=== PATIENT | female | born 1995 | race Caucasian/White ===

== ENCOUNTER → 2023-07-18 16:23 | Outpatient (REF) | payer BC, SELFPAY | LOC: PNTC 16:23 | PROVIDERS: ATTENDING PHYSICIAN Obstetrics & Gynecology | DX: O99.210 Obesity complicating pregnancy, unspecified trimester (principal) | CPT/HCPCS: 76816 ==

== ENCOUNTER → 2023-08-04 16:26 | Outpatient (REF) | payer BC, SELFPAY | LOC: PNTC 16:26 | PROVIDERS: ATTENDING PHYSICIAN Obstetrics & Gynecology | DX: O99.210 Obesity complicating pregnancy, unspecified trimester (principal) | CPT/HCPCS: 59025; 76815 ==

== ENCOUNTER → 2023-08-11 16:28 | Outpatient (REF) | payer BC, SELFPAY | LOC: PNTC 16:28 | PROVIDERS: ATTENDING PHYSICIAN Obstetrics & Gynecology | DX: O99.210 Obesity complicating pregnancy, unspecified trimester (principal) | CPT/HCPCS: 59025; 76815 ==

== ENCOUNTER → 2023-08-18 16:03 | Outpatient (REF) | payer BC, SELFPAY | LOC: PNTC 16:03 | PROVIDERS: ATTENDING PHYSICIAN Obstetrics & Gynecology | DX: O99.210 Obesity complicating pregnancy, unspecified trimester (principal) | CPT/HCPCS: 59025; 76816 ==

== ENCOUNTER → 2023-08-25 06:57 | Outpatient (REF) | payer BC, SELFPAY | LOC: PNTC 06:57 | PROVIDERS: ATTENDING PHYSICIAN Obstetrics & Gynecology | DX: O99.210 Obesity complicating pregnancy, unspecified trimester (principal) | CPT/HCPCS: 59025; 76815 ==

== ENCOUNTER → 2023-09-01 11:27 | Outpatient (REF) | payer BC, SELFPAY | LOC: PNTC 11:27 | PROVIDERS: ATTENDING PHYSICIAN Obstetrics & Gynecology | DX: O99.210 Obesity complicating pregnancy, unspecified trimester (principal) | CPT/HCPCS: 59025; 76815 ==

== ENCOUNTER 2023-09-03 23:34 | Observation (INO) | payer BC, SELFPAY ==
[2023-09-03 23:51] VITALS: BMI 39.9
[2023-09-03 23:59] VITALS: BP 124/73
== END 2023-09-04 00:29 | disposition home or self-care (01) ==
LOC: LDRP 23:34
PROVIDERS: ADMITTING PHYSICIAN Obstetrics & Gynecology
DX: O36.8130 Decreased fetal movements, third trimester, not applicable or unspecified (principal); Z3A.39 39 weeks gestation of pregnancy; O99.213 Obesity complicating pregnancy, third trimester; E66.01 Morbid (severe) obesity due to excess calories
CPT/HCPCS: 59025; G0378

== ENCOUNTER → 2023-09-08 16:39 | Outpatient (REF) | payer BC, SELFPAY | LOC: PNTC 16:39 | PROVIDERS: ATTENDING PHYSICIAN Obstetrics & Gynecology | DX: O99.210 Obesity complicating pregnancy, unspecified trimester (principal) | CPT/HCPCS: 59025; 76815 ==

== ENCOUNTER 2023-09-12 08:16 | Inpatient (IN) | payer BC, SELFPAY ==
[2023-09-12 08:32] VITALS: BP 125/76; BMI 41.2
[2023-09-12 11:13] LABS: % Basophils 0.5 % (0-2); % Eosinophils 0.6 % (0-6); % Immature Granulocytes 0.9 % (0-0.5); % Lymphocytes 24.2 % (20.5-51.1); % Monocytes 6.8 % (1.7-9.3); Absolute Eosinophils 0.1 10^3/uL (0-0.7); Absolute Immature Granulocytes 0.1 10^3/uL (0-0.05); Absolute Lymphocytes 1.9 10^3/uL (1.2-3.4); Absolute Monocytes 0.5 10^3/uL (0.1-0.6); Absolute Neutrophils 5.2 10^3/uL (1.4-6.5); Mean Corp Hgb Conc. 34.4 g/dL (33.0-37.0); Mean Corpuscular Hgb 29.6 pg (27.0-31.0); Nucleated Red Blood Cells % 0 %; Red Blood Cell Count 3.72 10^6/uL (4.20-5.40); Red Cell Dist. Width 13.6 % (11.5-14.5); White Blood Cell Count 7.8 10^3/uL (4.8-10.8)
[2023-09-12] MEDS: PITOCIN 30 UNITS/NSS 500 ML IV ×2 (11:39→20:40)
[2023-09-12] MEDS: LR 1000 IV (11:39)
[2023-09-12] MEDS: TUMS 2 TABLET PO ×3 (11:54→22:07)
[2023-09-12 19:23] LABS: Platelet Count 140 10^3/uL (130-400)
[2023-09-12] MEDS: MORPHINE SULFATE 2 MG IV (20:51)
[2023-09-12] MEDS: MOTRIN 600 MG PO (22:09)
[2023-09-13] MEDS: MOTRIN 600 MG PO ×3 (04:33→17:32)
[2023-09-13 04:41] LABS: Hematocrit 28.5 % (37.0-47.0); Hemoglobin 9.7 g/dL (12.0-16.0)
[2023-09-13] MEDS: SENOKOT-S 1 TABLET PO (06:21)
[2023-09-13] MEDS: PRENATAL PLUS 1 TABLET PO (09:04)
[2023-09-13] MEDS: FEOSOL 325 MG PO ×2 (09:05→20:44)
[2023-09-13 14:53] LABS: Syphilis/T. pallidum Ab Reflex Negative (Negative)
[2023-09-14] MEDS: MOTRIN 600 MG PO ×2 (01:05→07:59)
--- NOTE | 2023-09-14 04:45 | DOWNTIME ---
There was a [employer] Client Office [employer]ician Downtime on 09/14/2023 from 0100 to 09/14/2023 at 0439. Downtime documentation of patient's care, including medication administrations, has been reconciled in the electronic record per guidelines. Refer to the
patient's paper chart under the miscellaneous tab to see printed paper medication records and downtime forms.
[2023-09-14] MEDS: FEOSOL 325 MG PO (07:56)
[2023-09-14] MEDS: PRENATAL PLUS 1 TABLET PO (07:56)
[2023-09-14] MEDS: SENOKOT-S 1 TABLET PO (07:56)
== END 2023-09-14 13:00 | disposition home or self-care (01) | DRG 807 ==
LOC: LDRP 08:16
PROVIDERS: ADMITTING PHYSICIAN Obstetrics & Gynecology
PROC: 0KQM0ZZ Repair Perineum Muscle, Open Approach (ICD-10-PCS; 2023-09-12)
PROC: 3E033VJ Introduction of Other Hormone into Peripheral Vein, Percutaneous Approach (ICD-10-PCS; 2023-09-12)
PROC: 10907ZC Drainage of Amniotic Fluid, Therapeutic from Products of Conception, Via Natural or Artificial Opening (ICD-10-PCS; 2023-09-12)
PROC: 10E0XZZ Delivery of Products of Conception, External Approach (ICD-10-PCS; 2023-09-12)
DX: O48.0 Post-term pregnancy (principal); Z37.0 Single live birth; Z3A.40 40 weeks gestation of pregnancy; O70.1 Second degree perineal laceration during delivery; O69.81X0 Labor and delivery complicated by cord around neck, without compression, not applicable or unspecified; O99.214 Obesity complicating childbirth; E66.01 Morbid (severe) obesity due to excess calories; O90.81 Anemia of the puerperium; D64.9 Anemia, unspecified
CPT/HCPCS: 59025; 85014; 85018; 85025; 85049; 85461; 86780; 86850; 86900; 86901

== ENCOUNTER → 2024-10-08 17:08 | Outpatient (REF) | payer BC, SELFPAY | LOC: PNTC 17:08 | PROVIDERS: ATTENDING PHYSICIAN Obstetrics & Gynecology | DX: O36.80X0 Pregnancy with inconclusive fetal viability, not applicable or unspecified (principal); O99.211 Obesity complicating pregnancy, first trimester; Z36.82 Encounter for antenatal screening for nuchal translucency | CPT/HCPCS: 76801; 76813 ==

== ENCOUNTER → 2024-11-06 15:49 | Outpatient (REF) | payer BC, SELFPAY | LOC: PNTC 15:49 | PROVIDERS: ATTENDING PHYSICIAN Obstetrics & Gynecology | DX: O99.210 Obesity complicating pregnancy, unspecified trimester (principal) | CPT/HCPCS: 76805 ==

== ENCOUNTER → 2024-12-04 09:53 | Outpatient (REF) | payer BC, SELFPAY | LOC: PNTC 09:53 | PROVIDERS: ATTENDING PHYSICIAN Obstetrics & Gynecology | DX: O99.210 Obesity complicating pregnancy, unspecified trimester (principal) | CPT/HCPCS: 76811 ==

== ENCOUNTER → 2025-01-10 10:25 | Outpatient (REF) | payer BC, SELFPAY | LOC: PNTC 10:25 | PROVIDERS: ATTENDING PHYSICIAN Obstetrics & Gynecology | DX: O99.212 Obesity complicating pregnancy, second trimester (principal) | CPT/HCPCS: 76816 ==

== ENCOUNTER → 2025-02-07 16:14 | Outpatient (REF) | payer BC, SELFPAY | LOC: PNTC 16:14 | PROVIDERS: ATTENDING PHYSICIAN Obstetrics & Gynecology | DX: Z34.90 Encounter for supervision of normal pregnancy, unspecified, unspecified trimester (principal) | CPT/HCPCS: 36415; 86850; 86900; 86901; 96372; J2790 ==

== ENCOUNTER → 2025-02-25 17:23 | Outpatient (REF) | payer BC, SELFPAY | LOC: PNTC 17:23 | PROVIDERS: ATTENDING PHYSICIAN Obstetrics & Gynecology | DX: O99.210 Obesity complicating pregnancy, unspecified trimester (principal) | CPT/HCPCS: 76816 ==

== ENCOUNTER → 2025-03-11 16:57 | Outpatient (REF) | payer BC, SELFPAY | LOC: PNTC 16:57 | PROVIDERS: ATTENDING PHYSICIAN Obstetrics & Gynecology | DX: O99.213 Obesity complicating pregnancy, third trimester (principal) | CPT/HCPCS: 59025; 76815 ==

== ENCOUNTER → 2025-03-18 16:51 | Outpatient (REF) | payer BC, SELFPAY | LOC: PNTC 16:51 | PROVIDERS: ATTENDING PHYSICIAN Obstetrics & Gynecology | DX: O99.213 Obesity complicating pregnancy, third trimester (principal) | CPT/HCPCS: 59025; 76815 ==

== ENCOUNTER → 2025-03-25 17:07 | Outpatient (REF) | payer BC, SELFPAY | LOC: PNTC 17:07 | PROVIDERS: ATTENDING PHYSICIAN Obstetrics & Gynecology | DX: O99.213 Obesity complicating pregnancy, third trimester (principal) | CPT/HCPCS: 59025; 76816 ==

== ENCOUNTER → 2025-04-01 17:06 | Outpatient (REF) | payer BC, SELFPAY | LOC: PNTC 17:06 | PROVIDERS: ATTENDING PHYSICIAN Obstetrics & Gynecology | DX: O99.213 Obesity complicating pregnancy, third trimester (principal) | CPT/HCPCS: 59025; 76815 ==

== ENCOUNTER → 2025-04-08 16:56 | Outpatient (REF) | payer BC, SELFPAY | LOC: PNTC 16:56 | PROVIDERS: ATTENDING PHYSICIAN Obstetrics & Gynecology | DX: O99.213 Obesity complicating pregnancy, third trimester (principal) | CPT/HCPCS: 59025 ==

== ENCOUNTER → 2025-04-22 17:03 | Outpatient (REF) | payer BC, SELFPAY | LOC: PNTC 17:03 | PROVIDERS: ATTENDING PHYSICIAN Obstetrics & Gynecology | DX: O99.213 Obesity complicating pregnancy, third trimester (principal) | CPT/HCPCS: 59025; 76816 ==

== ENCOUNTER 2025-04-23 15:34 | Inpatient (IN) | payer BC, SELFPAY ==
[2025-04-23 15:58] VITALS: BP 116/71; BMI 39.1
[2025-04-23] MEDS: TUMS CHEWABLE TABLET 400 MG PO (16:45)
[2025-04-23] MEDS: LR 1000 IV (16:48)
[2025-04-23 16:56] LABS: Hematocrit 32.6 % (37.0-47.0); Hemoglobin 10.6 g/dL (12.0-16.0); Mean Corp Hgb Conc. 32.5 g/dL (33.0-37.0); Mean Corpuscular Volume 85.8 fL (81.0-99.0); Nucleated Red Blood Cells % 0 %; Platelet Count 163 10^3/uL (130-400); Red Cell Dist. Width 14.3 % (11.5-14.5)
[2025-04-23] MEDS: PITOCIN 30 UNITS/NSS 500 ML IV (18:09)
[2025-04-23] MEDS: TYLENOL 650 MG PO (19:20)
[2025-04-23] MEDS: COLACE 100 MG PO (19:20)
[2025-04-23] MEDS: MOTRIN 600 MG PO (19:20)
[2025-04-24] MEDS: TYLENOL 650 MG PO ×4 (00:27→19:52)
[2025-04-24] MEDS: MOTRIN 600 MG PO ×4 (03:47→21:51)
[2025-04-24 04:20] LABS: Hematocrit 28.1 % (37.0-47.0); Hemoglobin 9.4 g/dL (12.0-16.0)
[2025-04-24] MEDS: COLACE 100 MG PO ×2 (08:39→19:52)
[2025-04-24] MEDS: PRENATAL PLUS 1 TABLET PO (08:39)
[2025-04-24] MEDS: RHOGAM 300 MCG IM (13:11)
[2025-04-25] MEDS: MOTRIN 600 MG PO (04:37)
[2025-04-25] MEDS: TYLENOL 650 MG PO (08:01)
[2025-04-25] MEDS: COLACE 100 MG PO (08:01)
[2025-04-25] MEDS: PRENATAL PLUS 1 TABLET PO (08:01)
[2025-04-26 16:28] LABS: Syphilis/T. pallidum Ab Reflex Negative (Negative)
== END 2025-04-25 10:50 | disposition home or self-care (01) | DRG 807 ==
LOC: LDRP 15:34
PROVIDERS: ADMITTING PHYSICIAN Obstetrics & Gynecology
PROC: 10907ZC Drainage of Amniotic Fluid, Therapeutic from Products of Conception, Via Natural or Artificial Opening (ICD-10-PCS; 2025-04-23)
PROC: 0KQM0ZZ Repair Perineum Muscle, Open Approach (ICD-10-PCS; 2025-04-23)
PROC: 10E0XZZ Delivery of Products of Conception, External Approach (ICD-10-PCS; 2025-04-23)
DX: O48.0 Post-term pregnancy (principal); Z37.0 Single live birth; Z3A.40 40 weeks gestation of pregnancy; O70.1 Second degree perineal laceration during delivery
CPT/HCPCS: 85014; 85018; 85025; 85461; 86780; 86850; 86900; 86901; J2790